=== PATIENT | male | born 1955 | race Caucasian/White ===

== ENCOUNTER 2017-12-16 14:08 | Emergency (ER) | payer SELFPAY ==
[~2017-12-16] VITALS: Ht 172.7 cm; Wt 81.6 kg
--- NOTE | 2017-12-16 14:21 | ED AMS/SEIZURE/WEAK/DIZZY ---
History of Present Illness General Chief Complaint: Syncope and Near-Syncope Stated Complaint: BIBA, ?SYNCOPE Source: patient, old records, EMS Exam Limitations: no limitations Vital Signs & Intake/Output Vital Signs & Intake/Output Vital Signs Date Time Temp Pulse Resp B/P B/P Pulse O2 O2 Flow FiO2 Mean Ox Delivery Rate 12/16 1723 98.0 64 18 200/88 98 Room Air 12/16 1511 96 Room Air 12/16 1414 98.6 83 19 145/80 96 Room Air Allergies Coded Allergies: No Known Allergies (12/16/17) Reconcile Medications Aspirin (Aspirin*) 81 MG TAB.CHEW 1 TAB PO DAILY HEART HEALTH (Reported) Triage Nurses Notes Reviewed? yes Onset: Abrupt Duration: hour(s): (1), better, resolved prior to arrival Timing: recent history Injury Environment: work Severity: moderate Severity Numbers: 6 No Modifying Factors: none Associated Symptoms: denies HPI: 61-year-old male with past history of seizure disorder not currently on any medications presents after he was found on the ground outside of his work. On arrival patient denies any prodromal dizziness lightheadedness prior to the episode and is not sure if he fainted. He is alert and oriented 3 in arrival and offers no complaints. No chest pain abdominal pain nausea vomiting headache. Patient denies tobacco or alcohol use. He only takes aspirin daily. He denies any urinary incontinence. On arrival per EMS patient was found post ictal on their arrival (Blayne Sánchez) Past History Travel History Traveled to [place] past 21 day No Medical History Any Pertinent Medical History? see below for history Neurological: seizure Surgical History Surgical History: denies Family History Hx Contributory? No (Blayne Sánchez) Review of Systems Review of Systems Constitutional: Reports: see HPI. All Other Systems: Reviewed and Negative Comments Review of systems: See HPI, All other systems negative. Constitutional, no chills no fever HEENT: no sore throat no congestio Cardiovascular: No chest pain , no palpitation Skin: no rashes, no change in skin Respiratory: No dyspnea no cough GI: No nausea no vomiting, no diarrhea, no bloating/constipation : No dysuria No hematuria, no frequency Muscle skeletal: No joint pain, no back pain, no neck pain, Neurologic: , no headache Psych: No stress Heme/endocrine: No bruising Immunology: No lymphadenopathy (Blayne Sánchez) Physical Exam Physical Exam General Appearance: well developed/nourished, alert, awake Comments: Well-developed well-nourished person in no acute distress HEENT: Normal EENT exam; PERRL, EOMI, no nystagmus. HEAD is atraumatic. moist mucous membranes. Neck: Supple, nontender normal range of motion without pain or tenderness Back: Nontender, no CVA tenderness. Full range of motion Cardiovascular: Regular rate and rhythms no murmurs rubs or gallops, normal JVP Respiratory: Chest nontender.There were no bony deformities, no asymmetry. No respiratory distress. Patient speaking in full complete sentences. Breath sounds clear to auscultation bilaterally: NO W/R/R Abdomen: Soft, nontender nondistended, no appreciable organomegaly. Normal bowel sounds. No rebound/guarding, Extremity: No edema, full range of motion of extremities, normal and equal pulses bilaterally, 5 out of 5 strength noted to bilateral upper and lower extremities Neuro: Alert oriented x3, motor sensory normal, cranial nerves II through XII grossly intact. There were no obvious focal neurologic abnormalities. Skin: No appreciable rash on exposed skin, skin is warm and dry. Psych: Mood and affect is normal, memory and judgment is normal. Core Measures ACS in differential dx? Yes CVA/TIA Diagnosis No Sepsis Present: No Sepsis Focused Exam Completed? No (Blayne Sánchez) Progress Differential Diagnosis: arrythmia, anemia, CVA/stroke, dehydration, electrolyte imbalance, GI bleed, hypoglycemia, hypoxia, seizure disorder, subarachnoid Hem., vertebrobasilar insuff Plan of Care: Orders Procedure Date/time Status PROLACTIN 12/16 1435 Complete Telemetry/Senior Center Director 12/16 1411 Active TROPONIN LEVEL 12/16 1411 Complete COMPREHENSIVE METABOLIC PANEL 12/16 1411 Complete CBC WITHOUT DIFFERENTIAL 12/16 1411 Complete EKG 12/16 1410 Active Laboratory Tests 12/16/17 1435: Anion Gap 12, Estimated GFR 48 L, BUN/Creatinine Ratio 11.3, Glucose 99, Calcium 9.5, Total Bilirubin 1.0, AST 33, ALT 36, Alkaline Phosphatase 74, Troponin I < 0.01, Total Protein 6.6, Albumin 3.9, Globulin 2.7, Albumin/ Globulin Ratio 1.4, Prolactin 81.5 H, CBC w Diff NO MAN DIFF REQ, RBC 4.61 L, MCV 88.7, MCH 28.9, MCHC 32.6 L, RDW 14.1, MPV 7.6, Gran % 81.3 H, Lymphocytes % 13.3 L, Monocytes % 4.9, Eosinophils % 0.2, Basophils % 0.3, Absolute Granulocytes 7.3 H, Absolute Lymphocytes 1.2, Absolute Monocytes 0.4, Absolute Eosinophils 0, Absolute Basophils 0 12/16/17 1420: Prolactin Cancelled Patient denies any complaints at this time resting in no acute distress alert and oriented 3 CAT scan and x-ray labs ordered. Case d/w dr ochoa agrees with plan 1555 on repeat evaluation patient remains asymptomatic ambulatory around ER with steady gait. I spoke with Dr. Regan who advised to have the patient call his office tomorrow to make an appointment. Per Dr. Ross advised not to start the patient on any anti-seizure medication at this time until he is seen and evaluated by them EEG. I discussed with the patient and his family however at length that he should not drive until he is seen by neurology. Return precautions were discussed at length I discussed with the patient is family at length all of his lab results CAT scan and x-ray findings they feel comfortable with plan cleared for discharge. on reepeat eval pt noted to be hypertensive. he denies hernandes, vision changes, cp. i d/w him need for close f/u with pmd for recheck, pt has nohistoyr of htn, he feels comfortable with discharge. i ansswered all of his questions. Diagnostic Imaging: Viewed by Me: Radiology Read, CT Scan. Discussed w/RAD: Radiology Read, CT Scan. Radiology Impression: PATIENT: ROSALBA ARRIAGA PRESENT AGE: 61 PATIENT ACCOUNT NO: [id number] : 55 LOCATION: [facility] ORDERING PHYSICIAN: Blayne BEAL SERVICE DATE: 12/16/17 EXAM TYPE: CAT - CT HEAD WO IV CONTRAST EXAMINATION: CT HEAD WITHOUT CONTRAST CLINICAL INFORMATION: Question syncope. Fall. COMPARISON: None. TECHNIQUE: Contiguous axial imaging was performed from the skull base to vertex without intravenous administration of contrast. DLP: 614 mGy-cm. FINDINGS: There is mild soft tissue contusion about the midline parietal scalp. There is no intracranial hemorrhage, extra-axial collection, or calvarial fracture. The ventricles are normal in size and configuration without evidence of hydrocephalus. The paranasal sinuses are clear. The mastoids and middle ear cavities are clear. There is mild degenerative change about the bilateral temporomandibular joints. There is a subperiosteal lipoma in the left frontal scalp. IMPRESSION: Mild soft tissue contusion about the midline parietal scalp. No intracranial hemorrhage or acute abnormality. DICTATED BY: Susan Taylor MD DATE/TIME DICTATED:12/16/171521 MD PSYCHIATRY:FERMIN DATE/TIME TRANSCRIBED:12/16/171521 CONFIDENTIAL, DO NOT COPY WITHOUT APPROPRIATE AUTHORIZATION. <Electronically signed in Other Vendor System> SIGNED BY: Susan Taylor MD 12/16/171530, PATIENT: ROSALBA ARRIAGA PRESENT AGE: 61 PATIENT ACCOUNT NO : [id number] : 55 LOCATION: [facility] ORDERING PHYSICIAN: Blayne BEAL SERVICE DATE: 12/16/17 EXAM TYPE: RAD - XRY-SHOULDER COMPLETE-RIGHT EXAMINATION: 3 views of the right shoulder CLINICAL INFORMATION: Pain to rule out fracture COMPARISON: Chest radiograph 12/16/2017 FINDINGS: There are no fractures. The bony articulations are maintained. Acromioclavicular and coracoclavicular distances are normal. Imaged right lung is clear. IMPRESSION: No acute osseous findings. DICTATED BY: Alberto Willson MD DATE/TIME DICTATED:1531 MD PSYCHIATRY:FERMIN DATE/TIME TRANSCRIBED:12/16/171531 CONFIDENTIAL, DO NOT COPY WITHOUT APPROPRIATE AUTHORIZATION. <Electronically signed in Other Vendor System> SIGNED BY: Alberto Willson MD 12/16/171536, PATIENT: ROSALBA ARRIAGA PRESENT AGE: 61 PATIENT ACCOUNT NO: [id number] : 55 LOCATION: ER ORDERING PHYSICIAN: Blayne BEAL SERVICE DATE: 12/16/17 EXAM TYPE: RAD - XRY-SHOULDER COMPLETE-RIGHT EXAMINATION: 3 views of the right shoulder CLINICAL INFORMATION: Pain to rule out fracture COMPARISON: Chest radiograph 12/16/2017 FINDINGS: There are no fractures. The bony articulations are maintained. Acromioclavicular and coracoclavicular distances are normal. Imaged right lung is clear. IMPRESSION: No acute osseous findings. DICTATED BY: Alberto Willson MD DATE/TIME DICTATED:1531 MD PSYCHIATRY:BEVERLY DATE/TIME TRANSCRIBED:12/16/171531 CONFIDENTIAL, DO NOT COPY WITHOUT APPROPRIATE AUTHORIZATION. <Electronically signed in Other Vendor System> SIGNED BY: Alberto Willson MD 12/16/171536 Initial ED EKG: nsr at 70, no acute st seg changes, normal axis Rhythm Strip: normal sinus rhythm (Blayne Sánchez) Departure Departure Time of Disposition: 1712 Disposition: HOME OR SELF CARE Condition: Stable Clinical Impression Primary Impression: Seizure Referrals: Acacia MZEA,Ezra Chamberlain MD,Yamel Addison MD,Ananth Additional Instructions: Follow-up with neurologist Dr. Roger as well as primary care physician Dr. chamberlain- call their office tomorrow and let them know the provider spoke with dr regan who would like you to be seen soon. You should not drive until you are seen by them. Follow up with primary care physician dr chamberlain as discussed regarding your elevated blood pressure. return anytime sooner with any concerns should not drive until you are seen by a neurologist return anytime sooner with any concerns. Departure Forms: Customer Survey General Discharge Information (Blayne Sánchez) PA/MANAGER OF INTERN[employer] Co-Sign Statement Statement: ED Attending supervision documentation- [] I saw and evaluated the patient. I have also reviewed all the pertinent lab results and diagnostic results. I agree with the findings and the plan of care as documented in the PA's/MA[employer]'s documentation. [X] I have reviewed the ED Record and agree with the PA's/MANA[employer] OF [employer]'s documentation. [] Additions or exceptions (if any) to the PAs/MANAGER OF [employer]'s note and plan are summarized below: [] (Arthur MEZA,Devin Sheridan)
[2017-12-16] MEDS ORDERED: ASPIRIN81 M4 PO (14:25)
[2017-12-16 14:51] LABS: ABSOLUTE BASOPHIL COUNT 0 /CUMM (0.0-0.2); ABSOLUTE EOSINOPHIL COUNT 0 /CUMM (0.0-0.7); ABSOLUTE GRANULOCYTE CT 7.3 /CUMM (1.4-6.5); ABSOLUTE LYMPH COUNT 1.2 /CUMM (1.2-3.4); ABSOLUTE MONOCYTE COUNT 0.4 /CUMM (0.10-0.60); BASOPHIL % 0.3 % (0.0-2.0); EOSINOPHIL % 0.2 % (0-5); GRANULOCYTE % 81.3 % (42.2-75.2); HEMATOCRIT 40.8 % (42-52); MEAN CORPUSCULAR HGB 28.9 PG (27.0-31.0); MEAN CORPUSCULAR HGB CONC 32.6 G/DL (33.0-37.0); MEAN CORPUSCULAR VOLUME 88.7 FL (80.0-94.0); MEAN PLATELET VOLUME 7.6 FL (7.4-10.4); PLATELET COUNT 319 /CUMM (130-400); RBC DISTRIBUTION WIDTH 14.1 % (11.5-14.5); RED BLOOD CELL CT 4.61 /CUMM (4.70-6.10)
--- NOTE | 2017-12-16 15:31 | CT SCAN REPORT ---
EXAMINATION: CT HEAD WITHOUT CONTRAST CLINICAL INFORMATION: Question syncope. Fall. COMPARISON: None. TECHNIQUE: Contiguous axial imaging was performed from the skull base to vertex without intravenous administration of contrast. DLP: 614 mGy-cm. FINDINGS: There is mild soft tissue contusion about the midline parietal scalp. There is no intracranial hemorrhage, extra-axial collection, or calvarial fracture. The ventricles are normal in size and configuration without evidence of hydrocephalus. The paranasal sinuses are clear. The mastoids and middle ear cavities are clear. There is mild degenerative change about the bilateral temporomandibular joints. There is a subperiosteal lipoma in the left frontal scalp. IMPRESSION: Mild soft tissue contusion about the midline parietal scalp. No intracranial hemorrhage or acute abnormality.
--- NOTE | 2017-12-16 15:35 | RADIOLOGY REPORT ---
EXAMINATION: XR PORTABLE CHEST CLINICAL INFORMATION: Syncope COMPARISON: None TECHNIQUE: Portable frontal view of the chest was obtained. FINDINGS: No significant abnormality is noted involving the heart, lungs, mediastinum, bony thorax or soft tissues. IMPRESSION: No acute pulmonary finding.
--- NOTE | 2017-12-16 15:37 | RADIOLOGY REPORT ---
EXAMINATION: 3 views of the right shoulder CLINICAL INFORMATION: Pain to rule out fracture COMPARISON: Chest radiograph 12/16/2017 FINDINGS: There are no fractures. The bony articulations are maintained. Acromioclavicular and coracoclavicular distances are normal. Imaged right lung is clear. IMPRESSION: No acute osseous findings.
[2017-12-16 17:23] VITALS: BP 200/88
== END 2017-12-16 18:17 ==
LOC: ERH 14:08
PROVIDERS: Physician Assistant Medical
DX: R56.9 Unspecified convulsions (principal)
CPT/HCPCS: 71045; 73030-RT; 93005; 93010